=== PATIENT | female | born 1985 | race Caucasian/White ===

== ENCOUNTER 2016-10-30 17:45 | Day surgery (SDC) | payer SELFPAY ==
[~2016-10-30] VITALS: Ht 167.6 cm; Wt 88.5 kg
[2016-10-30] MEDS ORDERED: MORPHINE 4 MG/ML 1ML SYRINGE IV ONE (18:15)
[2016-10-30] MEDS ORDERED: NS 1,000 ML IV ONE (18:15)
[2016-10-30] MEDS ORDERED: ONDANSETRON 4MG/2ML VIAL (J2405) IV ONE (18:15)
[2016-10-30 18:38] LABS: BASO % 0.3 % (0.0-1.0); EOS # 0.1 K/mm3 (0.0-0.50); EOS % 0.8 % (0.0-3.0); LARGE UNSTAINED CELL # 0.1 K/mm3 (0.0-0.4); LARGE UNSTAINED CELL % 0.9 % (0.0-4.0); LYMPH # 1.6 K/mm3 (1.5-4.5); LYMPH % 10.8 % (24.0-44.0); MEAN CORPUSCULAR HEMOGLOBIN 28.4 pg (27.0-33.0); MEAN CORPUSCULAR HGB CONC 32.4 g/dl (32.0-36.5); MEAN CORPUSCULAR VOLUME 87.6 fl (80.0-96.0); MONO # 0.6 K/mm3 (0.0-0.8); MONO % 4.4 % (0.0-5.0); NEUTROPHILS % 82.6 % (36.0-66.0); PLATELET COUNT, AUTOMATED 258 k/mm3 (150-450); RED CELL DISTRIBUTION WIDTH 13.9 % (11.5-14.5); WHITE BLOOD COUNT 13.2 K/mm3 (4.0-10.0)
[2016-10-30 18:57] LABS: INR 0.94
--- NOTE | 2016-10-30 19:13 | REP ---
Clinical: Vaginal bleeding. Dating and viability. Technique: Transabdominal and transvaginal first trimester obstetrical ultrasound with color Doppler evaluation of the maternal ovaries and fetus. Findings: Heterogeneous anteverted uterus measures 13.8 x 6.3 x 6.4 cm. Endometrial complex is heterogeneous and thickened to 23.2 mm with color flow noted. No intrauterine identified. Maternal ovaries are normal in appearance. Right ovary measures 2.5 x 2.1 x 2.6 cm. Left ovary measures 2.3 x 1.4 x 2.0 cm. No pelvic fluid or adnexal mass lesion. Impression: Thickened endometrial complex without definable intrauterine . Differential diagnosis would include early intrauterine as well as spontaneous and retained products of conception cannot be excluded as well. Correlation with serial HCG levels recommended and repeat ultrasound if necessary. Signed by Devonte Osborne MD 10/30/2016 07:04 P
[2016-10-30] MEDS ORDERED: NS 1,000 ML IV STA ×2 (20:17)
[2016-10-30] MEDS ORDERED: MIDAZOLAM INJ 2 MG/2 ML VIAL (J2250) As Ordered ONE (20:21)
[2016-10-30] MEDS ORDERED: fentaNYL 100 MCG/2 ML INJECTION (J3010) As Ordered ONE (20:21)
[2016-10-30] MEDS ORDERED: CALCIUM CHLORIDE 10% 1 GM/10 ML SYR As Ordered ONE (21:00)
[2016-10-30] MEDS ORDERED: dexameTHASONE 4 MG/ML 1ML VIAL (J1100) As Ordered ONE (21:00)
[2016-10-30] MEDS ORDERED: PHENYLephrine HCL 500 MCG/5 ML (100MCG/ML) SYRINGE (J2370) As Ordered ONE (21:01)
[2016-10-30] MEDS ORDERED: SUCCINYLCHOLINE 100 MG/5 ML SYRINGE (J0330) As Ordered ONE (21:01)
[2016-10-30] MEDS ORDERED: PROPOFOL 200 MG/20 ML VIAL As Ordered ONE (21:01)
[2016-10-30] MEDS ORDERED: ePHEDrine SULFATE 25 MG/5 ML(5MG/ML) SYRINGE As Ordered ONE (21:01)
[2016-10-30] MEDS ORDERED: LIDOCAINE 2% INJ 100 MG/5 ML SDV (FOR ANES.) As Ordered ONE (21:01)
[2016-10-30 21:25] LABS: MEAN CORPUSCULAR HEMOGLOBIN 28.5 pg (27.0-33.0); MEAN CORPUSCULAR HGB CONC 31.8 g/dl (32.0-36.5); MEAN CORPUSCULAR VOLUME 89.7 fl (80.0-96.0); RED CELL DISTRIBUTION WIDTH 13.9 % (11.5-14.5); WHITE BLOOD COUNT 9.5 K/mm3 (4.0-10.0)
[2016-10-30] MEDS ORDERED: HYDROmorphone HCL 1 MG/ML SYRINGE (J1170) IV PRN (21:30)
[2016-10-30] MEDS ORDERED: PHENYLEPHRINE HCL INJ 10 MG in D5W 100 ML IV SCH (21:30)
[2016-10-30] MEDS ORDERED: ONDANSETRON 4MG/2ML VIAL (J2405) IV PRN ×2 (21:30→21:45)
[2016-10-30] MEDS ORDERED: fentaNYL 100 MCG/2 ML INJECTION (J3010) IV PRN (21:30)
[2016-10-30] MEDS ORDERED: PERCOCET 5MG/325MG TAB PO PRN (21:30)
[2016-10-30] MEDS ORDERED: LR 1,000 ML IV SCH (21:30)
[2016-10-30] MEDS ORDERED: ACETAMINOPHEN 500 MG TAB PO PRN (21:45)
[2016-10-30] MEDS: LR 1,000 ML IV SCH (21:45)
[2016-10-30] MEDS ORDERED: IBUPROFEN 800 MG TAB PO PRN (21:45)
[2016-10-30 23:00] VITALS: BP 125/75
[2016-10-31 02:00] VITALS: BP 126/66
[2016-10-31] MEDS: LR 1,000 ML IV SCH (05:42)
[2016-10-31 06:00] VITALS: BP_SYST 113; BP_SYST 167; BP_DIAS 57; BP_DIAS 72
--- NOTE | 2016-10-31 06:39 | RO ---
DATE OF PROCEDURE: 10/30/2016 PREPROCEDURE DIAGNOSIS: Incomplete with hemorrhage. POSTPROCEDURE DIAGNOSIS: Incomplete with hemorrhage. PROCEDURE: Dilation, evacuation and curettage. SURGEON: Dr. Igor Taylor SKIDDER LEVER OPERATOR: ANESTHESIA: General endotracheal. ESTIMATED BLOOD LOSS: 100 mL. FINDINGS: Moderate amount of products of conception. Continuous vaginal bleeding noted. OPERATIVE SUMMARYA: The patient was taken to the operating room where general endotracheal anesthesia was induced. She was prepped and draped in sterile fashion in the dorsal lithotomy position. A speculum was placed in the vagina. There was approximately 1000 mL of blood on the stretcher noted prior to transfer to the operating room (OR). A speculum was placed and the anterior lip of the cervix was grasped with a tenaculum. Products of conception at the os were grasped with ringed forceps. A #10 mm suction curette was placed through the internal os. The suction device was activated. The curette was gently rotated. The products of conception were noted to come through the suction tip. A sharp curettage was performed. Bleeding ceased. The uterine cavity seemed to be empty. All instruments were removed. Sponge and instrument counts were correct.
[2016-10-31 07:29] LABS: EOS % 0.1 % (0.0-3.0); LARGE UNSTAINED CELL % 0.4 % (0.0-4.0); LYMPH # 1.2 K/mm3 (1.5-4.5); LYMPH % 15.5 % (24.0-44.0); MEAN CORPUSCULAR HEMOGLOBIN 27.7 pg (27.0-33.0); MEAN CORPUSCULAR HGB CONC 31.7 g/dl (32.0-36.5); MEAN CORPUSCULAR VOLUME 87.5 fl (80.0-96.0); MONO # 0.2 K/mm3 (0.0-0.8); MONO % 2.2 % (0.0-5.0); NEUTROPHILS # 6.3 K/mm3 (1.8-7.7); NEUTROPHILS % 81.7 % (36.0-66.0); PLATELET COUNT, AUTOMATED 192 k/mm3 (150-450); RED CELL DISTRIBUTION WIDTH 14.1 % (11.5-14.5); WHITE BLOOD COUNT 7.7 K/mm3 (4.0-10.0)
[2016-10-31 07:40] LABS: ALBUMIN 2.6 GM/DL (3.2-5.2); ALBUMIN/GLOBULIN RATIO 0.93 (1.00-1.93); ALKALINE PHOSPHATASE 49 U/L (45-117); ALT/SGPT 11 U/L (12-78); ANION GAP 11 MEQ/L (8-16); AST/SGOT 9 U/L (15-37); BILIRUBIN,TOTAL 0.2 MG/DL (0.2-1.0); BLOOD UREA NITROGEN 5 MG/DL (7-18); CALCIUM LEVEL 7.8 MG/DL (8.5-10.1); CARBON DIOXIDE LEVEL 22 MEQ/L (21-32); CHLORIDE LEVEL 110 MEQ/L (98-107); CREATININE FOR GFR 0.78 MG/DL (0.55-1.02); GLOMERULAR FILTRATION RATE > 60.0 (>60); GLUCOSE, FASTING 149 MG/DL (70-105); POTASSIUM SERUM 3.9 MEQ/L (3.5-5.1); SODIUM LEVEL 143 MEQ/L (136-145); TOTAL PROTEIN 5.4 GM/DL (6.4-8.2)
[2016-10-31] MEDS ORDERED: MOTR200T44 PO (09:38)
[2016-10-31] MEDS ORDERED: TYLE500T78 PO (09:38)
== END 2016-10-31 11:54 | disposition home or self-care (01) ==
LOC: M ED 19:37 → M SDC 21:18 → M MSPAV 22:07 → M SDC 10-31 11:54
PROVIDERS: ATTEND Specialist
DX: O02.1 Missed abortion (principal)
CPT/HCPCS: 36415; 59820; 76801; 76817; 80053; 84702; 85025; 85027; 85610; 86850; 86900; 86901; 86920; 88305; 99284; J0330; J1100; J2250; J2370; J2405; J3010